=== PATIENT | female | born 1995 | race Caucasian/White ===

== ENCOUNTER 2017-09-04 18:18 | Emergency (ER) | payer SELFPAY ==
[2017-09-04] MEDS ORDERED: KETOROLAC TROMETHAMINE INJ 30 MG/ML VIAL IV ONE (18:40)
[2017-09-04] MEDS ORDERED: SODIUM CHLORIDE 0.9% 1000ML 1,000 ML IVS ONE (19:15)
--- NOTE | 2017-09-04 20:28 | CT ---
EXAM DESCRIPTION: Abdoment/Pelvis w/o Contrast CLINICAL HISTORY: abdominal pain COMPARISON: None Available. TECHNIQUE: Contiguous axial images of the abdomen and pelvis were obtained followed by reconstruction images. This exam was performed according to our departmental dose-optimization program, which includes automated exposure control, adjustment of the mA and/or kV according to patient size and/or use of iterative reconstruction technique. FINDINGS: Two stones are in the right kidney with the largest measuring 3 mm. These are nonobstructive. Several stones in the left kidney measure up to 2 mm. These are nonobstructive. No ureteral stone is seen. There is colonic diverticulosis. No definite diverticulitis. Trace fluid in the pelvis may be physiologic. There are scattered shotty mesenteric lymph nodes. There are mildly enlarged bilateral inguinal lymph nodes. The liver, spleen, pancreas and kidneys are otherwise within normal limits. The gallbladder is unremarkable by CT criteria. Adrenal glands are within normal limits. Aorta is of normal caliber and tapering. There is no free fluid in the abdomen or pelvis. There is no bowel obstruction. There is no stranding of the mesenteric fat to suggest an inflammatory response. The appendix is within normal limits. There is no pericecal inflammation. IMPRESSION: No acute intra-abdominal abnormality. Electronically signed by: Richard Forrest 09/04/2017 8:27 PM CDT
--- NOTE | 2017-09-04 20:43 | ED.PDOC ---
History of Present Illness - General Chief Complaint: Abdominal Pain Stated Complaint: left sided thoracic pain Time Seen by Provider: 09/04/17 18:23 Source: patient Exam Limitations: no limitations - History of Present Illness Initial Comments: Patient presents with left flank pain for one hour. It was sudden onset. It is constant and she prefers to lie still. Had N/V/D x one today. She has had urgency but no dysuria nor frequency. No hematuria nor feelings of incomplete voiding. She does not think she has had kidney stones before. No other complaints. Timing/Duration: 1 hour Severity: moderate Improving Factors: rest Worsening Factors: movement Allergies/Adverse Reactions: Allergies NO KNOWN ALLERGY Allergy (Verified 09/04/17 18:46) Home Medications: Ambulatory Orders Ketorolac Tromethamine [Toradol Tabs] 10 mg PO Q6HRS #14 tab 09/04/17 Review of Systems - Review of Systems Constitutional: States: no symptoms reported EENTM: States: no symptoms reported Respiratory: States: no symptoms reported Cardiology: States: no symptoms reported Gastrointestinal/Abdominal: States: see HPI Genitourinary: States: see HPI Musculoskeletal: States: no symptoms reported Skin: States: no symptoms reported Neurological: States: no symptoms reported Endocrine: States: no symptoms reported Hematologic/Lymphatic: States: no symptoms reported Past Medical History (General) - Patient Medical History Hx Seizures: No Hx Stroke: No Hx Asthma: No Hx Cardiac Disorders: No Hx Congestive Heart Failure: No Hx Thyroid Disease: No Hx Gastroesophageal Reflux: No Surgical History: no surgical history Family Medical History - Family History Mother Family History: No Known Physical Exam - Physical Exam General Appearance: Obvious distress Eye Exam: bilateral normal Ears, Nose, Throat: hearing grossly normal, normal ENT inspection, normal pharynx Neck: non-tender, full range of motion, supple Respiratory: chest non-tender, lungs clear, normal breath sounds, no respiratory distress Cardiovascular/Chest: normal peripheral pulses, regular rate, rhythm, no edema, no gallop Gastrointestinal/Abdominal: normal bowel sounds, non tender, soft Back Exam: normal inspection, no CVA tenderness Extremity: normal range of motion, non-tender, normal inspection 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 showed 2 mm stones in left kidney and 3 mm stones in the right kidney. Patient was given Toradol 30 mg IV x one with excellent relief of pain. There were no uretral stones on CT. Laboratory Tests 09/04/17 09/04/17 09/04/17 18:30 18:30 18:56 WBC RBC Hgb Hct MCV MCH MCHC RDW Plt Count MPV Absolute Neuts (auto) Absolute Lymphs (auto) Absolute Monos (auto) Absolute Eos (auto) Absolute Basos (auto) Neutrophils % Lymphocytes % Monocytes % Eosinophils % Basophils % Sodium 138 Potassium 3.7 Chloride 104 Carbon Dioxide 26 Anion Gap 11.7 L BUN 10 Creatinine 0.77 BUN/Creatinine Ratio 13.0 Random Glucose 121 H Serum Osmolality 276.0 Calcium 9.0 Total Bilirubin 0.6 AST 16 ALT 9 L Alkaline Phosphatase 35 L C-Reactive Protein Serum Total Protein 6.9 Albumin 4.0 Globulin 2.9 Albumin/Globulin Ratio 1.4 Urine Color Yellow Urine Appearance Sl cloudy Urine pH 5.5 Ur Specific [place] >= 1.030 Urine Protein 30 Urine Glucose (UA) Negative Urine Ketones 40 H Urine Blood Moderate H Urine Nitrite Negative Urine Bilirubin Negative Urine Urobilinogen 0.2 Ur Leukocyte Esterase Negative Urine RBC 20-30 H Urine WBC 0-1 Ur Epithelial Cells 5-10 Urine Bacteria 1+ Urine Mucus Moderate Urine HCG, Qual Negative 09/04/17 09/04/17 18:56 18:56 WBC 13.4 H RBC 4.17 L Hgb 12.8 Hct 37.6 MCV 90.2 MCH 30.6 MCHC 34.1 RDW 13.3 Plt Count 273 MPV 8.6 Absolute Neuts (auto) 11.70 H Absolute Lymphs (auto) 1.10 Absolute Monos (auto) 0.50 Absolute Eos (auto) 0.00 Absolute Basos (auto) 0.00 Neutrophils % 87.1 H Lymphocytes % 8.2 L Monocytes % 4.0 Eosinophils % 0.3 L Basophils % 0.4 Sodium Potassium Chloride Carbon Dioxide Anion Gap BUN Creatinine BUN/Creatinine Ratio Random Glucose Serum Osmolality Calcium Total Bilirubin AST ALT Alkaline Phosphatase C-Reactive Protein < 0.5 Serum Total Protein Albumin Globulin Albumin/Globulin Ratio Urine Color Urine Appearance Urine pH Ur Specific [place] Urine Protein Urine Glucose (UA) Urine Ketones Urine Blood Urine Nitrite Urine Bilirubin Urine Urobilinogen Ur Leukocyte Esterase Urine RBC Urine WBC Ur Epithelial Cells Urine Bacteria Urine Mucus Urine HCG, Qual Departure - Departure Clinical Impression: Nephrolithiasis Disposition: Discharge to Home or Self Care Condition: Good Departure Forms: ED Discharge - Pt. Copy, Patient Portal Self Enrollment Diet: resume usual diet Activity: increase activity as tolerated Prescriptions: Ketorolac Tromethamine [Toradol Tabs] 10 mg PO Q6HRS #14 tab Home Medications: Ambulatory Orders Ketorolac Tromethamine [Toradol Tabs] 10 mg PO Q6HRS #14 tab 09/04/17 Additional Instructions: Return to the E.R. for increasing pain or fever.
[2017-09-04 20:59] VITALS: BP 127/78; TEMP 97.8; O2SAT 100
== END 2017-09-04 21:00 | disposition home or self-care (01) ==
LOC: ER 18:18
DX: N20.0 Calculus of kidney (principal)
CPT/HCPCS: 36415; 74176; 80053; 81001; 81025; 85025; 86140; J1885; J7030